=== PATIENT | male | born 1975 | race Caucasian/White ===

== ENCOUNTER 2018-03-14 05:30 | Day surgery (SDC) | payer BC ==
[~2018-03-14] VITALS: Ht 193 cm; Wt 95.0 kg
[~2018-03-14 05:30] MED LIST: CeFAZolin 2 GM/DEXTROSE 50 ML IV ONE; ESCI20TA PO; RINGERS SOLUTION,LACTATED 1,000 ML IV ONE; ZOLP10TA7 PO
[2018-03-14] MEDS ORDERED: CeFAZolin 2 GM/DEXTROSE 50 ML IV ONE ×4 (06:00→11:00)
[2018-03-14] MEDS ORDERED: RINGERS SOLUTION,LACTATED 1,000 ML IV SCH (06:00)
[2018-03-14 06:06] LABS: BASOPHILS % (AUTO) 0.5 % (0.0-2.0); EOSINOPHILS % (AUTO) 6.9 % (1.0-6.0); HEMATOCRIT 42.9 % (41-53); LYMPHOCYTES # (AUTO) 2.9 K/uL (1.0-4.8); LYMPHOCYTES % (AUTO) 35.3 % (22.0-44.0); MEAN CORPUSCULAR HEMOGLOBIN 32.1 pg (26.0-34.0); MEAN CORPUSCULAR VOLUME 92 fL (80-100); MONOCYTES # (AUTO) 0.6 K/uL (0.1-1.0); MONOCYTES % (AUTO) 7.8 % (2.0-9.0); NEUTROPHILS # (AUTO) 4.1 K/uL (1.8-7.7); NEUTROPHILS % (AUTO) 49.5 % (40.0-70.0); PLATELET COUNT (AUTO) 243 K/uL (150-450); RED BLOOD CELL COUNT(AUTO) 4.66 MIL/uL (4.50-5.90); RED CELL DISTRIBUTION WIDTH 12.8 % (11.5-14.5)
[2018-03-14] MEDS ORDERED: BUPIVACAINE HCL/PF 0.5% 30 ML VIAL ONE (06:39)
[2018-03-14] MEDS ORDERED: MICROFIBRILLAR COLLAGEN 1 GM PACKAGE TP ONE (06:40)
[2018-03-14] MEDS ORDERED: SODIUM CL IRRIG SOLN BAG 3,000 ML IRRIG ONE (06:40)
[2018-03-14] MEDS ORDERED: VANCOMYCIN HCL 1 GM/VIAL ONE (06:41)
[2018-03-14] MEDS ORDERED: BUPIVACAINE LIPOSOME/PF 1.3%-13.3MG/ML SUSPENSION 10 ML VIAL INJ ONE (06:45)
[2018-03-14] MEDS ORDERED: ACETAMINOPHEN 1000 MG/ISO-OSM 100 ML IV ONE ×2 (07:45→08:46)
[2018-03-14] MEDS ORDERED: HYDROmorphone 2 MG/ML SYRINGE IVP PRN ×2 (07:45)
[2018-03-14] MEDS ORDERED: ONDANSETRON HCL 4 MG/2 ML VIAL IVP PRN (07:45)
[2018-03-14] MEDS ORDERED: MUPIROCIN CALCIUM 2% 22 GM OINTMENT ONE (07:50)
[2018-03-14] MEDS ORDERED: GUM MASTIC/STORAX/MSAL/ALCOHOL LIQUID 0.67 ML VIAL TP ONE (07:50)
[2018-03-14] MEDS ORDERED: MEPERIDINE-PF 25 MG/ML VIAL ONE (08:16)
[2018-03-14] MEDS ORDERED: FentaNYL CITRATE-PF 100 MCG/2 ML VIAL ONE (08:23)
[2018-03-14] MEDS ORDERED: HYDROmorphone 2 MG/ML SYRINGE ONE (08:23)
[2018-03-14] MEDS ORDERED: MEPERIDINE-PF 25 MG/ML VIAL IVP STA (08:28)
[2018-03-14] MEDS ORDERED: FentaNYL CITRATE-PF 100 MCG/2 ML VIAL IVP STA (08:28)
[2018-03-14] MEDS: HYDROmorphone 2 MG/ML SYRINGE IVP PRN ×5 (08:30→08:50)
[2018-03-14] MEDS ORDERED: MIDAZOLAM HCL 2 MG/2 ML VIAL IVP STA (08:32)
[2018-03-14] MEDS ORDERED: MIDAZOLAM HCL 2 MG/2 ML VIAL ONE (08:45)
[2018-03-14] MEDS ORDERED: MIDAZOLAM HCL 2 MG/2 ML VIAL IVP ONE (12:00)
[2018-03-14] MEDS ORDERED: ROCURONIUM BROMIDE 10 MG/ML 5 ML VIAL IVP ONE (12:00)
[2018-03-14] MEDS ORDERED: PROPOFOL 1% 20 ML VIAL IVP ONE (12:00)
[2018-03-14] MEDS ORDERED: SUCCINYLCHOLINE CHLORIDE 20 MG/ML 10 ML VIAL IVP ONE (12:00)
[2018-03-14] MEDS ORDERED: LIDOCAINE/PF 2% 5 ML VIAL INJ ONE (12:00)
[2018-03-14] MEDS ORDERED: FentaNYL CITRATE-PF 250 MCG/5 ML VIAL IVP ONE (12:00)
== END 2018-03-14 10:45 | disposition home or self-care (01) ==
LOC: SURGERY 05:30
PROVIDERS: ATTEND Orthopaedic Surgery
DX: T84.84XA Pain due to internal orthopedic prosthetic devices, implants and grafts, initial encounter (principal); G89.18 Other acute postprocedural pain; Y83.8 Other surgical procedures as the cause of abnormal reaction of the patient, or of later complication, without mention of misadventure at the time of the procedure; Y92.89 Other specified places as the place of occurrence of the external cause; M70.61 Trochanteric bursitis, right hip; L91.0 Hypertrophic scar; M89.8X8 Other specified disorders of bone, other site; M89.38 Hypertrophy of bone, other site; F12.90 Cannabis use, unspecified, uncomplicated; F32.9 Major depressive disorder, single episode, unspecified; Z98.52 Vasectomy status; Z98.890 Other specified postprocedural states; Z79.899 Other long term (current) drug therapy
CPT/HCPCS: 20680; 27062; 27065; 36415; 73502; 85025; 88302; 88313; C1713; J0131; J0330; J0690; J1170; J2175; J2250; J2704; J3010 ×2; J3370; J3490 ×3; J7120